=== PATIENT | female | born 1995 | race African-American/Black ===

== ENCOUNTER 2023-01-16 16:27 | Emergency (ER) | payer OTHER, MEDICAID ==
[~2023-01-16] VITALS: Ht 177.8 cm; Wt 54.0 kg
[2023-01-16 16:30] VITALS: BP 132/77
== END 2023-01-17 03:52 | disposition left against medical advice (07) ==
LOC: ER 16:27
DX: R45.6 Violent behavior (principal); Z91.013 Allergy to seafood
CPT/HCPCS: 99283